=== PATIENT | female | born 1985 | race Asian ===

== ENCOUNTER 2017-12-28 19:35 | Inpatient (IN) | payer OTHER ==
[~2017-12-28 19:35] MED LIST: Dinoprostone* 10 MG VAG.SUPP VAGINAL ONE
--- NOTE | 2017-12-28 20:29 | PN ---
L&D Outpatient: Visit - Reproductive Information Estimated Due Date: 12/21/17 Gestational Age: 41 Weeks and 0 Days : 1 - Reason for Visit Visit Reason: cervical ripening - Antepartal Records Antepartal Record: Reviewed, Complicated by: - breech presentation with successful version at 37 wks - Patient History Patient History Significant: No Review of Systems Constitutional: Comfortable CV Complaint: No Respiratory: Shortness of Breath: No Gastrointestinal: No Nausea/Vomiting Genitourinary: No Leaking Fluid Musculoskeletal: No Complaint Neurological: No Headache Movement: Normal L&D Outpatient: Exam - Cervical Exam Cervical Exam: 1cm, 70%, vtx -2 - Abdominal Exam Abdomen Exam: Non-Tender - Membranes Membrane Status: Intact - Ultrasound/Biophysical Profile Ultrasound Status: Not Done EFM Findings - External Monitor Findings Baseline Heart Rate: 150 External Monitor Findings: Accelerations Present, No Pattern of Variable or Late Decelerations, Variability Moderate External Monitor Findings Comment: category 1 Contractions: Irregular, Mild - not felt by pt, 45-90 Seconds Contraction Frequency: every 8-10 min L&D Outpatient: Asses/Plan Assessment: at 41 wks, unripe cervix, for ripening Plan: options for ripening reviewed, Cervidil recommended Cervidil placed at 2020 Will monitor per protocol reevaluate in am if no labor by then
[2017-12-29] MEDS ORDERED: Nalbuphine* 10 MG/ML 1 ML VIAL IM ONE (00:50)
[2017-12-29] MEDS ORDERED: Promethazine INJ(RESTRICTED)* 25 MG/ML 1 ML VIAL IM ONE (00:50)
[2017-12-29] MEDS ORDERED: Nalbuphine* 10 MG/ML 1 ML VIAL ONE (00:54)
[2017-12-29] MEDS ORDERED: Promethazine INJ(RESTRICTED)* 25 MG/ML 1 ML VIAL ONE (00:54)
[2017-12-29] MEDS ORDERED: Oxytocin in LR* 20 UNITS/1,000 ML BAG IVPB ONE (05:16)
[2017-12-29 05:35] LABS: ABS Basophils 0 10^3/ul (0-0.2); ABS Eosinophils 0 10^3/ul (0-0.6); ABS Lymphocytes 0.9 10^3/ul (1.0-4.8); ABS Monocytes 0.4 10^3/ul (0-0.8); ABS Neutrophils 9.2 10^3/ul (1.5-7.7); ABS Nucleated RBC 0 10^3/ul; Eosinophil % 0.1 % (0-6); Hematocrit 34 % (35-47); Hemoglobin 11.3 g/dl (12.0-16.0); Lymphocyte % 8.3 % (25-47); Mean Corpuscular HGB Conc 33 g/dl (31-36); Mean Corpuscular Hemoglobin 28 pg (27-31); Mean Corpuscular Volume 84 fL (80-97); Mean Platelet Volume 8.2 um3 (7.4-10.4); Nucleated Red Blood Cells % 0; Platelet Count 194 10^3/ul (150-450); Red Blood Count 4.05 10^6/ul (4.00-5.40); Red Cell Distribution Width 16 % (10.5-15); White Blood Count 10.5 10^3/ul (3.5-10.8)
[2017-12-29] MEDS ORDERED: Glycerin ADULT SUPP PR PRN (05:45)
[2017-12-29] MEDS ORDERED: Acetaminophen TAB* 325 MG PO PRN (05:45)
[2017-12-29] MEDS ORDERED: OXYTOCIN* 10 UNITS/ML 1 ML VIAL IM ONE (05:45)
[2017-12-29] MEDS ORDERED: Oxytocin in LR* 20 UNITS/1,000 ML BAG IVPB SCH (06:00)
--- NOTE | 2017-12-29 06:00 | HP ---
General Information - Reason for Visit post date - General Information Maternal Age: 32 Grav: 1 Para: 0 SAB: 0 IEA: 0 Estimated Due Date: 12/21/17 Determined By: LMP Maternal Blood Type and Rh: A Positive - Results this Serology/RPR Result: Non-Reactive Rubella Result: Immune HBsAg Result: Negative HIV Result: Negative GBS Culture Result: Negative Past Medical History Pertinent Past Medical History: Non-Contributory Pertinent Past Surgical History: None Family History Comment: unknown, pt adopted - Antepartal Records Antepartal Records: Reviewed, Complicated by: - breech with successful version at 37 wks Review of Systems Constitutional: Comfortable CV Complaint: No Respiratory: Shortness of Breath: No Gastrointestinal: No Nausea/Vomiting Genitourinary: Bleeding Neurological: No Headache, No Visual Changes - Comments ROS completed after delivery. Exam Allergies/Adverse Reactions: Allergies Penicillins Allergy (Severe, Verified 12/28/17 19:31) Hives Lab Values - Entire Visit: Laboratory Tests 12/29/17 12/29/17 05:20 05:20 WBC 10.5 RBC 4.05 Hgb 11.3 L Hct 34 L MCV 84 MCH 28 MCHC 33 RDW 16 H Plt Count 194 MPV 8.2 Neut % (Auto) 87.6 H Lymph % (Auto) 8.3 L [place] % (Auto) 3.5 Eos % (Auto) 0.1 Baso % (Auto) 0.5 Absolute Neuts (auto) 9.2 H Absolute Lymphs (auto) 0.9 L Absolute Monos (auto) 0.4 Absolute Eos (auto) 0 Absolute Basos (auto) 0 Absolute Nucleated RBC 0 Nucleated RBC % 0 Blood Type A Positive - Measurements Height: 5 ft 5 in Weight: 163 lb Weight in lbs: 163.672481 Body Mass Index (BMI): 27.1 Pre- Weight: 130 lb Weight Gained This : 33 lbs and 0 ozs - Exam Breast: - - soft, no masses Extremities: No Edema Heart: Normal Rhythm/Heart Sounds HEENT: No Significant Findings Lungs: Clear Bilaterally Reflexes: DTR 2+ Thyroid: No Thyromegaly - Abdominal Exam Abdomen Exam Comment: Fundus firm, mod flow - Ultrasound/Biophysical Profile Ultrasound Status: Not Done Targeted Exam Findings See L&D Outpatient Visit Provider Note for Findings: Yes Assessment/Plan - Assessment at 41 w 1 day, delivered - Plan Plan Comment: Routine PP care - Date/Time of Admission Date of Admission: 12/29/17 Time of Admission: 03:50
--- NOTE | 2017-12-29 06:18 | PROCNOTE ---
[facility] OB: Delivery Note - Delivery A Date of : 12/29/17 Time of : 05:05 [place] Sex: Female Weight at : 0 oz Score 1 Minute: 9 Score 5 Minutes: 9 Gestational Age in Weeks and Days at Delivery: 41 Weeks and 1 Days Delivery Method: Spontaneous Vaginal Labor: Induced - with Cervidil Did Patient attempt ?: N/A, No Previous Amniotic Fluid: Clear Estimated Blood Loss: 300 Anesthesia/Analgesia: None Delivered By: Shayy Daniels - Nursery Level of Nursery: Regular/Bedside - Perineum Perineal Injury: Perineal Laceration, 1st Degree Perineal Repair: By Delivering Practioner - with 3-0 ccg under 1% lidocaine local - Events Delivery Events of Note: None Apply - Additional Delivery Notes Additional Delivery Notes: Cervidil placed at 2020. Became uncomfortable and received Nubain/Phenergan at 0100. Slept a little but became more uncomfortable. Cervidil removed at 0340, pt got into tub. SROM while in tub. Out of tub at 0420, checked by RN, 8cm. Fully dilated at 0435, encouraged to push. SVB LFC, OA, over small 1st deg lac. after 30 min 2nd stage. Infant pink with stimulation. Placenta Mallorie, intact, heavily calicifed. Fundus sl boggy with massage, pitocin 10 units IM so IV with 20 unit pitocin initiated. EBL 300cc. Mother and baby in good condition.
[2017-12-29] MEDS: Ibuprofen TAB* 600 MG PO PRN ×2 (07:42→14:04)
[2017-12-29] MEDS: Witch Hazel PAD* JAR TOPICAL PRN (07:42)
[2017-12-29] MEDS: Docusate CAP* 100 MG PO SCH ×3 (13:48→20:19)
[2017-12-30] MEDS: Docusate CAP* 100 MG PO SCH ×3 (07:59→19:44)
[2017-12-30] MEDS: Ibuprofen TAB* 600 MG PO PRN ×3 (08:00→21:05)
[2017-12-30 08:12] LABS: ABS Basophils 0.1 10^3/ul (0-0.2); ABS Eosinophils 0.1 10^3/ul (0-0.6); ABS Lymphocytes 1.5 10^3/ul (1.0-4.8); ABS Monocytes 0.6 10^3/ul (0-0.8); ABS Neutrophils 5.4 10^3/ul (1.5-7.7); ABS Nucleated RBC 0 10^3/ul; Eosinophil % 0.7 % (0-6); Hematocrit 27 % (35-47); Lymphocyte % 20.1 % (25-47); Mean Corpuscular HGB Conc 34 g/dl (31-36); Mean Corpuscular Hemoglobin 28 pg (27-31); Mean Corpuscular Volume 83 fL (80-97); Mean Platelet Volume 8.1 um3 (7.4-10.4); Nucleated Red Blood Cells % 0; Platelet Count 148 10^3/ul (150-450); Red Blood Count 3.26 10^6/ul (4.00-5.40); Red Cell Distribution Width 16 % (10.5-15); White Blood Count 7.5 10^3/ul (3.5-10.8)
[2017-12-30] MEDS: Ferrous Gluconate TAB* 324 MG TAB PO SCH ×2 (08:40→19:44)
[2017-12-30] MEDS: Dibucaine 1% 28.35 GM TUBE PR PRN (09:55)
[2017-12-31 08:06] VITALS: BP 110/63
[2017-12-31] MEDS: Docusate CAP* 100 MG PO SCH (08:48)
[2017-12-31] MEDS: Ibuprofen TAB* 600 MG PO PRN (08:49)
[2017-12-31] MEDS: Ferrous Gluconate TAB* 324 MG TAB PO SCH (08:49)
[2017-12-31] MEDS: Dibucaine 1% 28.35 GM TUBE PR PRN (11:42)
[2017-12-31] MEDS: Witch Hazel PAD* JAR TOPICAL PRN (11:42)
== END 2017-12-31 13:00 | disposition home or self-care (01) | DRG 775 ==
LOC: MCHOBOUT 19:35 → MCHOB 12-29 03:49
PROVIDERS: ADMIT Midwife; ATTEND Midwife
PROC: 10E0XZZ Delivery of Products of Conception, External Approach (ICD-10-PCS; principal; 2017-12-29)
PROC: 3E033VJ Introduction of Other Hormone into Peripheral Vein, Percutaneous Approach (ICD-10-PCS; 2017-12-29)
PROC: 0HQ9XZZ Repair Perineum Skin, External Approach (ICD-10-PCS; 2017-12-29)
DX: O48.0 Post-term pregnancy (principal); O70.0 First degree perineal laceration during delivery; O90.81 Anemia of the puerperium; D64.9 Anemia, unspecified; Z3A.41 41 weeks gestation of pregnancy; Z37.0 Single live birth
CPT/HCPCS: 36415; 59200; 85025; 86850; 86900; 86901; A9270-GY; J2300; J2550; J2590

== ENCOUNTER 2018-01-05 22:09 | Emergency (ER) | payer OTHER ==
[2018-01-05] MEDS ORDERED: NS 0.9% 1000 ML*IV.FLUID IV ONE (22:32)
[2018-01-05] MEDS ORDERED: Acetaminophen TAB* 325 MG PO ONE (22:34)
[2018-01-05] MEDS ORDERED: Clindamycin 900 MG IVPREMIX(* 900 MG/50 ML SDV IV ONE (22:45)
--- NOTE | 2018-01-05 22:56 | ED ---
HPI Febrile Illness - HPI Summary HPI Summary: This patient is a 32 year old F presenting to [facility] accompanied by her with a chief complaint of intermittent fever since 3 days ago. Patient gave 7 days ago to her first child without any complications. The patient rates the pain 0/10 in severity. Symptoms aggravated by nothing. Symptoms alleviated by nothing. Patient reports chills and occasional dysuria. Patient denies abdominal pain, decreased appetite, pain, CP, cough, nausea, vomiting or difficulty . Patient has been taking Tylenol since the onset of symptoms but has not taken any today. - History of Current Complaint Chief Complaint: EDFever Time Seen by Provider: 01/05/18 22:32 Hx Obtained From: Patient Hx Last Menstrual Period: 2 WEEKS AGO Onset/Duration: Started Days Ago - 3 DAYS, Atraumatic, Still Present Timing: Intermittent, Lasting Days - 3 days Current Severity: None Pain Intensity: 0 Pain Scale Used: 0-10 Numeric Aggravating Factors: Nothing Alleviating Factors: Nothing Associated Signs and Symptoms: Chills, Dysuria - Allergy/Home Medications Allergies/Adverse Reactions: Allergies Allergy/AdvReac Type Severity Reaction Status Date / Time Penicillins Allergy Severe Hives Verified 01/05/18 22:17 PMH/Surg Hx/FS Hx/Imm Hx Opthamlomology History: Denies: Hx Legally Blind EENT History: Denies: Hx Deafness - Surgical History Surgery Procedure, Year, and Place: episiotomy Infectious Disease History: No Infectious Disease History: Denies: Traveled Outside the [place] in Last 30 Days - Family History Known Family History: Positive: None - patient denies relevant FHx - Social History Alcohol Use: None Substance Use Type: Reports: None Smoking Status (MU): Never Smoked Tobacco Review of Systems Positive: Fever, Chills Negative: Chest Pain Negative: Cough Negative: Vomiting, Nausea Positive: dysuria All Other Systems Reviewed And Are Negative: Yes Physical Exam - Summary Physical Exam Summary: Appearance: Well-appearing, Well-nourished, lying in bed comfortably Skin: Warm, dry, no obvious rash Eyes: sclera anicteric, no conjunctival pallor ENT: mucous membranes moist, pharynx appears normal Neck: Supple, nontender Respiratory: Clear to auscultation, no signs of respiratory distress Cardiovascular: Normal S1, S2. No murmurs. Normal distal pulses in tibial and radial bilaterally. Abdomen: Soft, nontender, normal active bowel sounds present Musculoskeletal: Normal, Strength/ROM Intact Neurological: A&Ox3, awake and alert, mentation is normal, speech is fluent and appropriate Psychiatric: affect is normal, does not appear anxious or depressed Genital: vagina, nml Triage Information Reviewed: Yes Vital Signs On Initial Exam: Initial Vitals Temp Pulse Resp BP Pulse Ox 104.0 F 152 20 131/88 96 01/05/18 22:14 01/05/18 22:14 01/05/18 22:14 01/05/18 22:14 01/05/18 22:14 Vital Signs Reviewed: Yes Diagnostics - Vital Signs Vital Signs Temp Pulse Resp BP Pulse Ox 01/05/18 22:36 102.3 F 01/05/18 22:14 104.0 F 152 20 131/88 96 - Laboratory Result Diagrams: 01/05/18 22:58 01/05/18 22:58 Lab Statement: Any lab studies that have been ordered have been reviewed, and results considered in the medical decision making process. - Radiology CXR Xray Interpretation: No Acute Changes - Impression: no acute disease Radiology Interpretation Completed By: ED Physician - Dr. Mullins, pending official report Re-Evaluation - Re-Evaluation 1st re-eval Re-Evaluation Time: 23:48 Change: Unchanged Comment: Discussed lab results with patient 2nd re-eval Re-Evaluation Time: 00:13 Change: Unchanged Comment: Discussed discharge plan with patient. Relayed Dr. Reddy's recommendations Course/Dx - Diagnoses Provider Diagnoses: Pyelonephritis - Provider Notifications Discussed Care Of Patient With: Fuentes Reddy Time Discussed With Above Provider: 00:11 Instructed by Provider To: Other - Dr. Reddy recommends outpatient tx Discharge - Sign-Out/Discharge Documenting (check all that apply): Patient Departure - Discharge Plan Condition: Good Disposition: HOME Prescriptions: Cefdinir [Cefdinir 300 MG CAP] 300 mg PO BID #26 capsule Patient Education Materials: Kidney Infection (ED) Referrals: Stefany Martinez MD [Primary Care Provider] - - Billing Disposition and Condition Condition: GOOD Disposition: Home - Attestation Statements Document Initiated by Scribe: Yes Documenting Scribe: Hazel Bain Provider For Whom Scribe is Documenting (Include Credential): Brandyn Mullins MD Scribe Attestation: I, Hazel Bain, scribed for Brandyn Mullins MD on 01/06/18 at 0104. Scribe Documentation Reviewed: Yes Provider Attestation: The documentation as recorded by the scribe, Hazel Bain accurately reflects the service I personally performed and the decisions made by me, Brandyn Mullins MD
[2018-01-05 23:10] LABS: ABS Basophils 0.1 10^3/ul (0-0.2); ABS Eosinophils 0 10^3/ul (0-0.6); ABS Lymphocytes 0.3 10^3/ul (1.0-4.8); ABS Monocytes 0.5 10^3/ul (0-0.8); ABS Neutrophils 10.3 10^3/ul (1.5-7.7); ABS Nucleated RBC 0 10^3/ul; Eosinophil % 0.1 % (0-6); Hematocrit 32 % (35-47); Hemoglobin 10.5 g/dl (12.0-16.0); Lymphocyte % 2.4 % (25-47); Mean Corpuscular HGB Conc 33 g/dl (31-36); Mean Corpuscular Hemoglobin 28 pg (27-31); Mean Corpuscular Volume 83 fL (80-97); Mean Platelet Volume 7.1 um3 (7.4-10.4); Nucleated Red Blood Cells % 0.1; Platelet Count 160 10^3/ul (150-450); Red Cell Distribution Width 17 % (10.5-15); White Blood Count 11.2 10^3/ul (3.5-10.8)
[2018-01-05 23:16] LABS: INR 1.14 (0.77-1.02)
[2018-01-05 23:26] LABS: EGFR Non-African American 96.7 (>60)
[2018-01-05] MEDS ORDERED: Benzonatate CAP* 100 MG PO ONE (23:35)
[2018-01-05 23:42] LABS: Urine Appearance Cloudy; Urine Blood 3+ (Negative); Urine Color Yellow; Urine Ketones Negative (Negative); Urine Protein 2+(100 mg/dL) (Negative); Urine Red Blood Cell Trace(0-2/hpf) (Absent); Urine Specific Gravity 1.004 (1.010-1.030); Urine Urobilinogen Negative (Negative); Urine White Blood Cell 3+(>20/hpf) (Absent)
[2018-01-05 23:44] LABS: Monocytes % 4 % (0-7)
[2018-01-05] MEDS ORDERED: cefTRIAXone(*) 1 GM in NS 0.9% 50 ML* 50 ML IVPB ONE (23:53)
[2018-01-06] MEDS: Vancomycin(*) 1,000 MG in NS 0.9% 250 ML* 250 ML IVPB ONE ×2 (00:09→00:15)
[2018-01-06 01:26] VITALS: BP 116/72
--- NOTE | 2018-01-06 09:52 | RAD ---
Indication: Intermittent fever for 3 days. Comparison: No relevant prior exams available on the [facility] for comparison. Technique: Upright AP 20 to 52 hours Report: Clear lungs and pleural spaces. Negative for pneumothorax. The heart, pulmonary vasculature, and mediastinal contours are unremarkable. Unremarkable osseous structures and soft tissue contours. IMPRESSION: #. No evidence for pneumonia. #. No evidence for acute intrathoracic disease. R0
== END 2018-01-06 01:26 | disposition home or self-care (01) ==
LOC: ED 22:09
DX: N12 Tubulo-interstitial nephritis, not specified as acute or chronic (principal); R50.9 Fever, unspecified; R30.0 Dysuria
CPT/HCPCS: 36415; 71045; 80053; 81003; 81015; 83605; 85025; 85610; 87040; 87077; 87086; 87186; 87205; 96365; 99283; A9270-GY; J0696; J3370

== ENCOUNTER 2018-01-06 15:21 | Observation (INO) | payer OTHER ==
--- NOTE | 2018-01-06 15:56 | ED ---
HPI Febrile Illness - HPI Summary HPI Summary: The pt is a 32 y/o female presenting to the [facility] c/o of intermittent fever since 4 days ago. She was called back to the ED due to abnormal blood cultures. The pt delivered her first baby about 8 days ago via a vaginal without any complications. She notes vaginal bleeding (1-2 pads a day) and chills but denies CP and abd pain. She was seen on 01/05/[address] Brandyn Mullins for the sx, was diagnosed with a kidney infection and discharged with abx. The fever and chills are not aggravated or alleviated by anything. She reports two more episodes of chills since she left yesterday. - History of Current Complaint Chief Complaint: EDFever Time Seen by Provider: 01/06/18 15:40 Hx Obtained From: Patient, Family/Armed Security Officer - Hx Last Menstrual Period: 2 WEEKS AGO Onset/Duration: Started Days Ago - 3 days Timing: Intermittent Current Severity: None Pain Intensity: 0 Pain Scale Used: 0-10 Numeric Aggravating Factors: Nothing Alleviating Factors: Nothing Associated Signs and Symptoms: Negative - CP, Abd pain, Chills, Other: - Vaginal bleeding - Allergy/Home Medications Allergies/Adverse Reactions: Allergies Allergy/AdvReac Type Severity Reaction Status Date / Time Penicillins Allergy Severe Hives Verified 01/06/18 15:27 Home Medications: Home Medications Cholecalciferol TAB* [Vitamin D TAB*] 2,000 units PO DAILY 01/06/18 [History Confirmed 01/06/18] PMH/Surg Hx/FS Hx/Imm Hx Previously Healthy: Yes Endocrine/Hematology History: Denies: Hx Diabetes Cardiovascular History: Denies: Hx Hypertension History: Reports: Hx Kidney Infection - Diagnosed 01/05/2018 Sensory History: Denies: Hx Legally Blind, Hx Deafness Opthamlomology History: Denies: Hx Legally Blind - Cancer History Cancer Type, Location and Year: None - Surgical History Surgery Procedure, Year, and Place: episiotomy Infectious Disease History: No Infectious Disease History: Denies: Traveled Outside the [place] in Last 30 Days - Family History Known Family History: Positive: None - patient denies relevant FHx - Social History Occupation: Employed Full-time Lives: With Family Alcohol Use: None Substance Use Type: Reports: None Smoking Status (MU): Never Smoked Tobacco Review of Systems Positive: Fever, Chills Negative: Chest Pain Negative: Abdominal Pain Positive: other - Positive: Vaginal bleeding All Other Systems Reviewed And Are Negative: Yes Physical Exam - Summary Physical Exam Summary: Appearance: Well appearing, no pain distress Skin: warm, dry, reflects adequate perfusion; dry mucous membranes Head/face: normal Eyes: EOMI, ASHOK ENT: normal Neck: supple, non-tender Respiratory: CTA, breath sounds present Cardiovascular: Tarchycardic; pulses symmetrical Abdomen: non-tender, soft Bowel: present Musculoskeletal: normal, strength/ROM intact Neuro: normal, sensory motor intact, A&Ox3 Triage Information Reviewed: Yes Vital Signs On Initial Exam: Initial Vitals Temp Pulse Resp BP Pulse Ox 103.0 F 151 14 116/71 98 01/06/18 15:24 01/06/18 15:24 01/06/18 15:24 01/06/18 15:24 01/06/18 15:24 Vital Signs Reviewed: Yes Diagnostics - Vital Signs Vital Signs Temp Pulse Resp BP Pulse Ox 01/06/18 15:35 153 20 118/76 97 01/06/18 15:24 103.0 F 151 14 116/71 98 - Laboratory Result Diagrams: 01/06/18 16:26 01/06/18 16:26 Lab Statement: Any lab studies that have been ordered have been reviewed, and results considered in the medical decision making process. Course/Dx - Course Course Of Treatment: A 32 year-old F presents to the ED with a CC of fever since 4 days ago. She was called back to the ED due to abnormal blood cultures. The pt delivered her first baby about 8 days ago via a vaginal without any complications. She notes vaginal bleeding (1-2 pads a day) and chills but denies CP and abd pain. She was seen on 01/05/[address] Brandyn Mullins for the sx, was diagnosed with a kidney infection and discharged with abx. She reports two more episodes of chills since she left. A physical exam revealed tachycardia and dry mucous membranes. I started a sepsis protocol. In the ED course, the pt was given Acetaminophen 975 g PO, N.s 0.9% 1000ml IV, Vancomycin 1000mg , N.s 0.9% 259 ml IV, Piperacillin 3.375 mg and N.s 0.9% 100 ml IV which improved the symptoms. I discussed the care of the pt with Dr. Bernardo Byrne MD (gravel machine operator) who saw the pt in the MD. The patient will be admitted to Dr. Mebmreno with a final Dx of UTI and sepsis. The pt is agreeable with this plan. Allergies noted. - Febrile Illness Differential Diagnoses: Bacteremia, Pyelonephritis, Sepsis - Diagnoses Provider Diagnoses: UTI (urinary tract infection), Sepsis - Provider Notifications Discussed Care Of Patient With: Caty Membreno - On/Generation Technologist Time Discussed With Above Provider: 16:07 Instructed by Provider To: Will See In ED - 16:57 - Dr. Membreno saw the pt in the ED - Critical Care Time Critical Care Time: 30-74 min Discharge - Sign-Out/Discharge Documenting (check all that apply): Patient Departure - Admit to Dr. Temi Byrne (Job Coach) - Discharge Plan Condition: Improved Disposition: ADMITTED TO [facility] Referrals: Stefany Martinez MD [Primary Care Provider] - - Billing Disposition and Condition Condition: IMPROVED Disposition: Admitted to [facility] - Attestation Statements Document Initiated by Scribe: Yes Documenting Scribe: Leisa Benedict Provider For Whom Scribe is Documenting (Include Credential): Dr. Willy Allison MD Scribe Attestation: Leisa Tilley , scribed for Dr. Willy Allison MD on 01/06/18 at 1756. Scribe Documentation Reviewed: Yes Provider Attestation: The documentation as recorded by the scribeLeisa accurately reflects the service I personally performed and the decisions made by , Dr. Willy Allison MD
[2018-01-06] MEDS ORDERED: NS 0.9% 1000 ML*IV.FLUID IV ONE (16:10)
[2018-01-06] MEDS ORDERED: Piperacillin/Tazobac ADVAN(*) 3.375 GM in NS 0.9% 100 ML* 100 ML IVPB ONE (16:10)
[2018-01-06] MEDS ORDERED: Acetaminophen TAB* 325 MG PO ONE (16:11)
[2018-01-06 16:38] LABS: ABS Basophils 0 10^3/ul (0-0.2); ABS Eosinophils 0 10^3/ul (0-0.6); ABS Lymphocytes 0.6 10^3/ul (1.0-4.8); ABS Monocytes 0.4 10^3/ul (0-0.8); ABS Neutrophils 8.5 10^3/ul (1.5-7.7); ABS Nucleated RBC 0 10^3/ul; Eosinophil % 0.4 % (0-6); Hematocrit 33 % (35-47); Hemoglobin 10.9 g/dl (12.0-16.0); Lymphocyte % 6.3 % (25-47); Mean Corpuscular HGB Conc 33 g/dl (31-36); Mean Corpuscular Hemoglobin 27 pg (27-31); Mean Corpuscular Volume 83 fL (80-97); Mean Platelet Volume 7.6 um3 (7.4-10.4); Nucleated Red Blood Cells % 0; Platelet Count 177 10^3/ul (150-450); Red Blood Count 3.97 10^6/ul (4.00-5.40); Red Cell Distribution Width 17 % (10.5-15); White Blood Count 9.6 10^3/ul (3.5-10.8)
[2018-01-06 16:48] LABS: INR 1.06 (0.77-1.02)
[2018-01-06 16:55] LABS: EGFR Non-African American 76.4 (>60)
[2018-01-06] MEDS ORDERED: Vancomycin(*) 1,000 MG VIAL IVPB SCH (17:00)
[2018-01-06] MEDS ORDERED: Vancomycin(*) 1,000 MG - ED ONCE IVPB ONE ×2 (17:00)
[2018-01-06] MEDS ORDERED: Potassium Chlor TAB* 10 MEQ TAB.ER PO ONE (17:39)
[2018-01-06 18:38] LABS: Urine Appearance Clear; Urine Blood 3+ (Negative); Urine Color Straw; Urine Ketones Negative (Negative); Urine Protein Negative (Negative); Urine Red Blood Cell 3+(>10/hpf) (Absent); Urine Specific Gravity 1.003 (1.010-1.030); Urine Urobilinogen Negative (Negative); Urine White Blood Cell 2+(11-20/hpf) (Absent)
--- NOTE | 2018-01-06 18:58 | HP ---
H&P (Free Text) History and Physical: HPI: Pt is 8day pp s/p NVD. She started to feel intermittent fever and chills 3 days ago. She initially took tylenol and waited it out but then yesterday evening she had more significant chills and went to the ED. She was dx'd with UTI and sent home with script for abx. Today blood cultures came back positive for gram negative bacilli so she was called back in. She denies any dysuria, increased frequency or pressure, pelvic, abdominal or back pain. Lochia is minimal changing only 1-2 pads/day. No unusual or foul-smelling discharge. Has had very occasional burning after urinating but feels it is due to her small laceration and it has been that way since delivery. Baby is breast- feeding and doing very well. 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 Very mild RLQ tenderness to deep palpation. No CVA or back tenderness Ext: neg edema. Neg calf tenderness A: ppd#8 with acute complicated UTI and sepsis. Stable P: Admit. Consulted with Dr. Sun (hospitalist service) in regards to management. Already on sepsis protocol. Repeat lactic acid. Repeat blood cultures pending Start Ceftriaxone. Cont IVF and po fluids. Replace potassium. Tylenol prn fever
[2018-01-06] MEDS: cefTRIAXone(*) 1 GM in NS 0.9% 50 ML* 50 ML IVPB SCH (20:22)
[2018-01-06] MEDS: NS 0.9% 1000 ML* 1,000 ML IV SCH (20:22)
[2018-01-07] MEDS: Acetaminophen TAB* 325 MG PO PRN ×2 (04:58→19:29)
[2018-01-07 05:45] LABS: ABS Basophils 0 10^3/ul (0-0.2); ABS Eosinophils 0 10^3/ul (0-0.6); ABS Lymphocytes 1.1 10^3/ul (1.0-4.8); ABS Monocytes 0.9 10^3/ul (0-0.8); ABS Neutrophils 8.3 10^3/ul (1.5-7.7); ABS Nucleated RBC 0 10^3/ul; Eosinophil % 0 % (0-6); Hematocrit 29 % (35-47); Hemoglobin 9.5 g/dl (12.0-16.0); Lymphocyte % 10.5 % (25-47); Mean Corpuscular HGB Conc 33 g/dl (31-36); Mean Corpuscular Hemoglobin 27 pg (27-31); Mean Corpuscular Volume 83 fL (80-97); Mean Platelet Volume 7.7 um3 (7.4-10.4); Nucleated Red Blood Cells % 0; Platelet Count 162 10^3/ul (150-450); Red Blood Count 3.45 10^6/ul (4.00-5.40); Red Cell Distribution Width 17 % (10.5-15); White Blood Count 10.3 10^3/ul (3.5-10.8)
[2018-01-07 06:11] LABS: EGFR Non-African American 86.7 (>60)
[2018-01-07] MEDS: NS 0.9% 1000 ML* 1,000 ML IV SCH ×2 (08:25→18:31)
--- NOTE | 2018-01-07 14:28 | PN ---
Progress Note - Progress Note Date of Service: 01/07/18 Note: S: pt feels well. Got more sleep this am and is feeling more rested. Says she had 2 episodes of chills, one last evening and one early this am but says they didn't last as long as before. None since. Still denies any pain. Min lochia. Says she hasn't had much of an appetite since delivery but she is taking in lots of fluids and eating some. No nausea. Breast-feeding going well. She does note that today she feels like she has to clear her throat or cough more and like she "got something down the wrong pipe". No real difficulty breathing - able to move about without shortness of breath. Using insentive spirometer. VS: 102T @5am - received tylenol. afebrile since. O2Sat wnl. HR 70-120, mostly 100s-110s. Exam: Gen: NAD Lungs: CTAB Abd: soft, NT/ND Ext: neg calf tenderness, neg edema Blood cx and urine cx both grew E. Coli Potassium level now normal. A: ppd#9 s/p NVD readmitted with acute complicated UTI septic by +blood culture and tachycardia. Now doing much better. P: continue cefriaxone. Should be 24hrs afebrile before d/c. F/u repeat blood cultures from yesterday.
[2018-01-07] MEDS: cefTRIAXone(*) 1 GM in NS 0.9% 50 ML* 50 ML IVPB SCH (19:29)
[2018-01-08] MEDS: NS 0.9% 1000 ML* 1,000 ML IV SCH ×2 (04:31→15:27)
--- NOTE | 2018-01-08 16:09 | PN ---
Progress Note - Progress Note Date of Service: 01/08/18 SOAP: Subjective: [Patient awake and alert in no distress, has no complaints, tolerating regular diet. she denies pain, dysuria, fever or chills. denies chest pain, SOB, nausea/vomiting.] Objective: [ Vital Signs - 24 hr 01/07/18 01/07/18 01/07/18 19:10 19:32 23:15 Temperature 101.0 F 97.8 F Pulse Rate 99 71 Respiratory 19 18 22 Rate Blood Pressure 132/74 132/74 (mmHg) O2 Sat by Pulse 99 97 98 Oximetry 01/08/18 01/08/18 01/08/18 03:28 05:06 08:42 Temperature 98.4 F 99.6 F 98.1 F Pulse Rate 76 71 Respiratory 24 20 Rate Blood Pressure 125/75 125/68 (mmHg) O2 Sat by Pulse 98 98 Oximetry 01/08/18 08:49 Temperature Pulse Rate Respiratory 20 Rate Blood Pressure (mmHg) O2 Sat by Pulse 98 Oximetry Active Medications Generic Name Dose Route Start Last Admin Trade Name Freq PRN Reason Stop Dose Admin Acetaminophen 650 mg 01/06/18 19:40 01/07/18 19:29 Tylenol Tab* PO 650 mg Q4H PRN Administration FEVER Sodium Chloride 1,000 mls @ 100 mls/hr 01/06/18 17:30 01/08/18 15:27 Ns 0.9% 1000 Ml* IV 100 mls/hr PER RATE GLENN Administration Ceftriaxone Sodium 1 gm/ 50 mls @ 200 mls/hr 01/06/18 19:30 01/07/18 19:29 Sodium Chloride IVPB 01/09/18 19:29 200 mls/hr Q24H GLENN Administration ] Assessment: [Patient is day 10, puerperium complicated by E-coli UTI with positive blood cultures for same organism, she is on ceftriaxone and responding well. her last fever was on 01/07/18 at 710pm.] Plan: [Continue current care, patient may be discharge home after 24hrs if afebrile an asymptomatic.]
[2018-01-08 17:19] VITALS: BP 136/73
[2018-01-08] MEDS: cefTRIAXone(*) 1 GM in NS 0.9% 50 ML* 50 ML IVPB SCH (19:01)
== END 2018-01-08 19:30 | disposition home or self-care (01) ==
LOC: ED 15:21 → SSU 17:19
PROVIDERS: ADMIT Obstetrics & Gynecology; ATTEND Obstetrics & Gynecology
DX: N39.0 Urinary tract infection, site not specified (principal); A41.9 Sepsis, unspecified organism; N93.9 Abnormal uterine and vaginal bleeding, unspecified; R50.9 Fever, unspecified; R11.2 Nausea with vomiting, unspecified; M54.9 Dorsalgia, unspecified; Z88.0 Allergy status to penicillin; R10.9 Unspecified abdominal pain
CPT/HCPCS: 36415; 80048; 80053; 81003; 83605; 83735; 85025; 85610; 85730; 87040; 96365; 99284; A9270-GY; G0378; J0696; J2543

== ENCOUNTER 2021-12-29 19:07 | Inpatient (IN) ==
[2021-12-29] MEDS ORDERED: Buffered Lidocaine 1% SYRIN 1 ml INTRADERM ONE ×2 (19:39→22:00)
[2021-12-29] MEDS ORDERED: Lactated Ringers 1000 ml BAG 1,000 ML IV SCH (22:00)
[2021-12-29] MEDS ORDERED: Lactated Ringers 1000 ml BAG 1,000 ML IV ONE (22:00)
[2021-12-29 22:31] LABS: ABS Lymphocytes 1.7 10^3/ul (1.0-4.8); ABS Monocytes 0.5 10^3/ul (0-0.8); ABS Neutrophils 5.6 10^3/ul (1.5-7.7); Eosinophil % 0.4 %; Hematocrit 36 % (35-47); Hemoglobin 11.9 g/dL (12.0-16.0); Lymphocyte % 21.4 %; Mean Corpuscular HGB Conc 33 g/dL (31-36); Mean Corpuscular Hemoglobin 29 pg (27-31); Mean Corpuscular Volume 88 fL (80-97); Mean Platelet Volume 7.8 fL (7.4-10.4); Platelet Count 202 10^3/uL (150-450); Red Cell Distribution Width 14 % (10-15); White Blood Count 7.8 10^3/uL (3.5-10.8)
[2021-12-29 22:57] LABS: Urine Benzodiazepine Screen None Detected (None Detect); Urine Cannabinoids Screen None Detected (None Detect); Urine Opiates Screen None Detected (None Detect)
[2021-12-29] MEDS ORDERED: Lidocaine 2% w/ EPI 1:200,000 MPF 20 ML SDV VIAL ONE (23:01)
[2021-12-30 01:16] LABS: Urine Appearance Clear; Urine Bilirubin Negative (Negative); Urine Blood Negative (Negative); Urine Color Colorless; Urine Glucose Negative (Negative); Urine Ketones 1+ (15mg/dL) (Negative); Urine Nitrite Negative (Negative); Urine Protein Negative (Negative); Urine Specific Gravity <=1.005 (1.005-1.030); Urine Urobilinogen 0.2 (Negative) (Negative); Urine pH 6.5 (5.0-9.0)
[2021-12-30] MEDS ORDERED: Oxytocin in LR 20,000 MILLI.UNIT/1,000 ML BAG IV ONE (02:30)
[2021-12-30] MEDS ORDERED: Dibucaine 1% OINT 28.35 GM TUBE PR PRN (04:32)
[2021-12-30] MEDS ORDERED: Glycerin ADULT 2.4 gm SUPP PR PRN (04:32)
[2021-12-30] MEDS ORDERED: Measles, Mumps,Rubella VACC 0.5 ML/VIAL SUBCUT ONE (04:32)
[2021-12-30] MEDS ORDERED: Witch Hazel PAD JAR TOPICAL PRN (04:32)
[2021-12-30] MEDS ORDERED: Oxytocin in LR 20,000 MILLI.UNIT/1,000 ML BAG IV SCH (04:45)
[2021-12-30] MEDS ORDERED: Lactated Ringers 1000 ml BAG 1,000 ML IV SCH (05:00)
[2021-12-30] MEDS ORDERED: OBEPIDURAL (200 ML) 200 ML EPIDURAL ONE (07:26)
[2021-12-30] MEDS ORDERED: Lidocaine 1% VIAL 10 MG/ML VIAL ONE (15:08)
[2021-12-31 06:34] LABS: ABS Basophils 0.1 10^3/ul (0-0.2); ABS Eosinophils 0.1 10^3/ul (0-0.6); ABS Lymphocytes 2.1 10^3/ul (1.0-4.8); ABS Monocytes 0.5 10^3/ul (0-0.8); ABS Neutrophils 4.1 10^3/ul (1.5-7.7); Eosinophil % 1.3 %; Hematocrit 32 % (35-47); Hemoglobin 10.6 g/dL (12.0-16.0); Lymphocyte % 30.6 %; Mean Corpuscular HGB Conc 34 g/dL (31-36); Mean Corpuscular Hemoglobin 29 pg (27-31); Mean Corpuscular Volume 87 fL (80-97); Mean Platelet Volume 7.6 fL (7.4-10.4); Platelet Count 169 10^3/uL (150-450); Red Blood Count 3.64 10^6 /uL (3.70-4.87); Red Cell Distribution Width 14 % (10-15); White Blood Count 6.8 10^3/uL (3.5-10.8)
[2022-01-01 08:50] VITALS: BP 103/59
== END 2022-01-01 14:02 | disposition home or self-care (01) | DRG 560 ==
LOC: MCHOBOUT 19:07 → MCHOB 21:53
PROVIDERS: ADMIT Midwife; ATTEND Midwife